=== PATIENT | female | born 1960 | race Caucasian/White ===

== ENCOUNTER → 2017-03-09 | Outpatient (CLI) | payer OTHER ==
--- NOTE | 2017-03-09 15:06 | CARD ---
APPROVED REPORT EXAM: Two-dimensional and M-mode echocardiogram with Doppler and color Doppler. Other Information Quality : GoodHR: 80bpm Rhythm : NSR INDICATION Chest Pain RISK FACTORS Obesity Hyperlipidemia Family History 2D DIMENSIONS RVDd2.8 (2.9-3.5cm)Left Atrium(2D)3.6 (1.6-4.0cm) IVSd1.0 (0.7-1.1cm)Aortic Root(2D)3.1 (2.0-3.7cm) LVDd5.3 (3.9-5.9cm)LVOT Diameter2.4 (1.8-2.4cm) PWd1.0 (0.7-1.1cm)LVDs3.4 (2.5-4.0cm) FS (%) 37.1 %SV91.5 ml LVEF(%)66.5 (>50%) Aortic Valve AoV Peak Miguel Angel.222.6cm/sAoV VTI44.5cm AO Peak GR.19.8mmHgLVOT Peak Miguel Angel.131.6cm/s LVOT VTI 25.65cmAO Mean GR.12mmHg NICOLE (VMAX)2.78gr3USJ (VTI)2.57cm2 Mitral Valve MV E Kuhwvsyz53.2cm/sMV E Peak Gr.4mmHg MV DECEL [id number] A Widkeodm27.8cm/s MV E Mean Gr.2mmHgE/A Ratio1.1 MV A [id number] Pulmonary Valve PV Peak Aozsucpi287.3cm/sPV Peak Grad.5mmHg Tricuspid Valve TR P. Pqbyfxvu724ee/sTR Peak Gr.25mmHg Pulmonary Vein S1 Rfbjjioe27.0cm/sD2 Hgolyzsy68.0cm/s LEFT VENTRICLE The left ventricle is normal size. There is normal left ventricular wall thickness. The left ventricu lar systolic function is normal and the ejection fraction is within normal range. The Ejection Fracti on is 65-70%. There is normal LV segmental wall motion. The left ventricular diastolic function and f illing is normal for age. RIGHT VENTRICLE The right ventricle is normal size. There is normal right ventricular wall thickness. The right ventr icular systolic function is normal. ATRIA The left atrium size is normal. The right atrium size is normal. The interatrial septum is intact wit h no evidence for an atrial septal defect or patent foramen ovale as noted on 2-D or Doppler imaging. AORTIC VALVE The aortic valve is mildly sclerotic. The aortic valve is trileaflet. Doppler and Color Flow revealed no significant aortic regurgitation. There is no significant aortic valvular stenosis. MITRAL VALVE The mitral valve is normal in structure and function. There is no evidence of mitral valve prolapse. There is no mitral valve stenosis. Doppler and Color Flow revealed no mitral valve regurgitation note d. TRICUSPID VALVE Doppler and Color Flow revealed trace tricuspid regurgitation. The pulmonary artery systolic pressure is estimated at 28 mmHg. There is no pulmonary hypertension. PULMONIC VALVE The pulmonic valve is not well visualized but appears to open well. Doppler and Color Flow revealed n o pulmonic valvular regurgitation. There is no pulmonic valvular stenosis by spectral Doppler. GREAT VESSELS The aortic root is normal in size. The ascending aorta is normal in size. The pulmonary artery is nor mal. The IVC is normal in size and collapses >50% with inspiration. PERICARDIAL EFFUSION There is no evidence of significant pericardial effusion. Critical Notification Critical Value: No <Conclusion> The left ventricular systolic function is normal and the ejection fraction is within normal range. Th e Ejection Fraction is 65-70%. There is normal LV segmental wall motion.
== END | disposition home or self-care (01) ==
LOC: ECHO 07:34
PROVIDERS: ATTEND Internal Medicine Cardiovascular Disease
DX: R07.9 Chest pain, unspecified (principal); E66.9 Obesity, unspecified; E78.5 Hyperlipidemia, unspecified
CPT/HCPCS: 93306

== ENCOUNTER → 2017-03-09 | Outpatient (CLI) | payer OTHER ==
--- NOTE | 2017-03-09 09:54 | RAD ---
Indication pain particularly in the heels. AP oblique and lateral views of both feet were obtained. Views of the right foot show no acute finding. Significant degenerative changes are not seen. Bony mineralization appears normal. Views of the left foot also appear unremarkable. There are no significant degenerative changes. Bony mineralization appears normal. No acute finding is seen. IMPRESSION: Normal plain films of the feet.
== END | disposition home or self-care (01) ==
LOC: RAD 07:56
PROVIDERS: ATTEND Psychiatry & Neurology Neurology with Special Qualifications in Child Neurology
DX: M79.671 Pain in right foot (principal); M79.672 Pain in left foot
CPT/HCPCS: 73630

== ENCOUNTER → 2017-03-09 | Outpatient (CLI) | payer OTHER ==
--- NOTE | 2017-03-09 09:44 | RAD ---
Indication back pain. AP oblique and lateral views of the lumbar spine were obtained as well as a coned view targeted to the lumbosacral junction. There is very minimal anterior spondylolisthesis of L4 relative to L5. There are facet degenerative changes in the lower lumbar spine most pronounced at L4-5 and L5-S1. There is very minimal disc space narrowing at L5-S1. An acute bony finding is not seen. IMPRESSION:: Minimal spondylitic changes. No acute finding seen
== END | disposition home or self-care (01) ==
LOC: RAD 07:48
PROVIDERS: ATTEND Physician Assistant
DX: M43.16 Spondylolisthesis, lumbar region (principal)
CPT/HCPCS: 72110

== ENCOUNTER → 2017-06-04 | Outpatient (CLI) | payer OTHER ==
--- NOTE | 2017-06-04 12:01 | RAD ---
DATE: 06/04/2017 EXAM: DIGITAL SCREEN BILAT W/CAD HISTORY: Routine screening COMPARISON: 07/20/2009. This study was interpreted with the benefit of Computerized Aided Detection (CAD). FINDINGS: No discrete mass or malignant-appearing microcalcifications are seen. The axillae are unremarkable. Breast Density: FATTY The breast parenchyma is primarily fatty replaced. Breast parenchyma level density A. IMPRESSION: No mammographic features suspicious for malignancy are identified. BI-RADS CATEGORY: 1 NEGATIVE RECOMMENDED FOLLOW-UP: 12M 12 MONTH FOLLOW-UP PQRS compliance statement: Patient information was entered into a reminder system with a target due date 06/04/2018 for the next mammogram. Mammography is a sensitive method for finding small breast cancers, but it does not detect them all and is not a substitute for careful clinical examination. A negative mammogram does not negate a clinically suspicious finding and should not result in delay in biopsying a clinically suspicious abnormality. "Our facility is accredited by the [employer] Mammography Program."
== END | disposition home or self-care (01) ==
LOC: MAMMO 11:02
PROVIDERS: ATTEND Physician Assistant
DX: Z12.31 Encounter for screening mammogram for malignant neoplasm of breast (principal); F17.200 Nicotine dependence, unspecified, uncomplicated
CPT/HCPCS: G0202; 77067

== ENCOUNTER → 2017-07-21 | Outpatient (CLI) | payer OTHER ==
--- NOTE | 2017-07-21 12:25 | RAD ---
2 views of the Chest 07/21/2017 2:00 AM Indication: SHORT OF AIR WITH COUGH Comparison: None Findings: No pneumothorax or evidence of pleural effusion is identified. There is a basilar predominant interstitial coarsening, similar comparison studies, which can be seen with COPD. Heart size is stable. Bony thorax is intact. Impression: Stable appearance of the chest without evidence of acute cardiac pulmonary process
== END | disposition home or self-care (01) ==
LOC: PMG 11:38
PROVIDERS: ATTEND Physician Assistant
DX: R05 Cough (principal); F17.200 Nicotine dependence, unspecified, uncomplicated
CPT/HCPCS: 71020

== ENCOUNTER → 2018-06-14 | Outpatient (CLI) | payer OTHER ==
--- NOTE | 2018-06-14 13:50 | RAD ---
DATE: 06/14/2018 EXAM: DIGITAL SCREEN BILAT W/CAD HISTORY: Routine screening COMPARISON: 08/07/2003 and 06/04/2017 screen mammogram This study was interpreted with the benefit of Computerized Aided Detection (CAD). Breast Density: FATTY The breast parenchyma is primarily fatty replaced. Breast parenchyma level density A. FINDINGS: Benign-appearing axillary lymph nodes are present. No suspicious calcification clusters, masses, or distortion. IMPRESSION: Normal BI-RADS CATEGORY: 2 BENIGN FINDING(S) RECOMMENDED FOLLOW-UP: 12M 12 MONTH FOLLOW-UP PQRS compliance statement: Patient information was entered into a reminder system with a target due date in 1 year for the next mammogram. Mammography is a sensitive method for finding small breast cancers, but it does not detect them all and is not a substitute for careful clinical examination. A negative mammogram does not negate a clinically suspicious finding and should not result in delay in biopsying a clinically suspicious abnormality. "Our facility is accredited by the [employer] Mammography Program."
== END | disposition home or self-care (01) ==
LOC: MAMMO 13:09
PROVIDERS: ATTEND Physician Assistant
DX: Z12.31 Encounter for screening mammogram for malignant neoplasm of breast (principal)
CPT/HCPCS: 77067

== ENCOUNTER 2020-07-06 18:36 | Emergency (ER) | payer OTHER ==
[~2020-07-06] VITALS: Ht 170.2 cm; Wt 100.0 kg
--- NOTE | 2020-07-06 18:42 | PHYS DOC ---
Past History Past Medical History: Arthritis Smoking: Cigarettes Alcohol Use: Occasionally Drug Use: Amphetamine General Adult EDM: Chief Complaint: HIP PAIN HPI: HPI: "I fell the other day... two day before .. and hurt this Lt hip.. and it been .. hurting ever since.. I been to [facility].. he did not do anything.. I went to Urgent Care ... and they sent me here for US of my Lt. leg.. you see I have had lots strokes.. 5 major.. to many small strokes to count.. I am partially blind.. and weak on this Lt sied.... they tell me to stop smoking.. but you gotta of something.. Also has nonproductive cough,... Patient is a 59 year old female who presents with above hx and complaints of left hip pain after fall 2 days before . Patient still localizes pain in left hip and left leg. Patient has been seen by Dr. Baer as well as urgent care just before arrival here. Patient has significant history of CVAs TIAs. 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 Patient has history of chronic pain. Patient has history of chronic back pain particularly after fall and fractures transverse processes of L 3 and L4. Patient does continue to smoke in spite of her frequent encouragement by her physicians both neurology and primary to stop smoking. Review of Systems: Review of Systems: Constitutional: Denies fever or chills Eyes: Denies change in visual acuity HENT: Denies nasal congestion or sore throat Respiratory: History of nonproductive cough and shortness of breath Cardiovascular: History of chest discomfort GI: Denies abdominal pain, nausea, vomiting, bloody stools or diarrhea : Denies dysuria Musculoskeletal: Complains of chronic back pain or joint pain Integument: Denies rash Neurologic: Denies headache, focal weakness or sensory changes Endocrine: Denies polyuria or polydipsia Lymphatic: Denies swollen glands Psychiatric: History of anxiety Family History: Family History: Noncontributory to presentation Current Medications: Current Meds: See nursing for home meds Allergies: Allergies: Allergies Coded Allergies Type Severity Reaction Last Updated Verified No Known Drug Allergies 03/10/17 No Physical Exam: PE: Constitutional: Reports moderate acute distress, non-toxic appearance. [] HENT: Normocephalic, atraumatic, bilateral external ears normal, oropharynx moist, no oral exudates, nose normal. [] Eyes: PERRLA, EOMI, conjunctiva normal, no discharge. [] Neck: Normal range of motion, no tenderness, supple, no stridor. [] Cardiovascular:Heart rate regular rhythm, no murmur, PMI slightly to the left. Lungs & Thorax: Bilateral breath sounds equal apex with scattered wheezes on auscultation [] Abdomen: Bowel sounds normal, soft, no tenderness, no masses, no pulsatile masses. Obese. Skin: Warm, dry, no erythema, no rash. Poor turgor. Back: Lumbar sacral tenderness, no CVA tenderness. Left sciatic nerve tenderness Extremities: No tenderness, no cyanosis, no clubbing, ROM intact, no edema. [Arthritic changes. Walks with a limp and complains of chronic left leg pain which seems to follow the sciatic nerve. Neurologic: Alert and oriented X 3, moves all extremities on request, does have distal sensory, does have chronic left side weakness from previous CVA. Psychologic: Affect normal, judgement normal, mood normal. [] EKG: EKG: [] Radiology/Procedures: Radiology/Procedures: [] IMAGING REPORT Signed PATIENT: MYRANDA RO EACCOUNT: [id number] : 1960 LOCATION: ER AGE: 59 SEX: F EXAM STATUS: REG ER ORD. PHYSICIAN: JORGE LUIS JUSTICE MD REASON: dyspnea, cp Omni 350 100cc PROCEDURE: CT ANGIOGRAPHY CHEST Exam: CT of chest with contrast INDICATION: Dyspnea, chest pain TECHNIQUE: Sequential axial images through the chest obtained following the administration 100 mL of Omni 350 IV contrast. Sagittal and coronal reformatted images were reconstructed from the axial data and reviewed. 3-D reformatted images were reconstructed from the axial data and reviewed. Comparisons: Chest x-ray same day FINDINGS: Visualized portions of the thyroid are unremarkable. No enlarged mediastinal lymph nodes are identified. Heart size is normal. No pericardial effusion. Thoracic aorta has a normal course and caliber. Pulmonary artery is not enlarged. No pulmonary embolus identified within the main, lobar or Airways are patent. No consolidation or pneumothorax. No suspicious lung nodules. No pleural effusion or thickening. Visualized upper abdomen is unremarkable. No suspicious osseous lesions or acute fractures. IMPRESSION: No pulmonary embolus identified within the main, lobar or segmental pulmonary arteries. Exposure: One or more of the following in the visualized dose reduction techniques were utilized for this examination: 1. Automated exposure control 2. Adjustment of the MA and/or KV according to patient size 3. Use of iterative of reconstructive technique Electronically signed by: Omayra Martinez MD (07/06/2020 10:36 PM) [facility] DICTATED AND SIGNED BY: OMAYRA MARTINEZ MD DATE: 07/06/202235 CC: JORGE LUIS JUSTICE MD; DAMASO BAER ~[facility] [place] [address] IMAGING REPORT Signed PATIENT: MYRANDA RO EACCOUNT: [id number] : 1960 LOCATION: ER AGE: 59 SEX: F EXAM STATUS: REG ER ORD. PHYSICIAN: JORGE LUIS JUSTICE MD REASON: Fall, lower back and Lt hip pain PROCEDURE: CT LUMBAR SPINE WO CONTRAST CT lumbar spine without contrast History: Back pain Axial helical images of the lumbar spine were obtained without contrast. Axial, coronal and sagittal reconstruction was performed. Findings: There is grade 1 anterolisthesis of L4 on L5. There is no loss of vertebral body stature. Evaluation of the central canal is limited without contrast. Diffuse or frontal disc bulge and hypertrophy of the facets and ligamentum flavum results in marked central stenosis at L4-L5. There is moderate narrowing of the neuroforamen bilaterally at L4-5 right worse than left and loss of fat around the exiting nerve roots. There is old ununited fractures of the right transverse process of L3 on L4. There is multiple small nonobstructive stones in the right renal pelvis. Impression: 1. Grade 1 anterior listhesis of L4 on L5 with central and neural femoral stenosis. There is compression of the intraforaminal course the exiting nerve roots bilaterally at L4-5. 2. No acute findings. End impression PQRS Compliance Statement: One or more of the following individualized dose reduction techniques were utilized for this examination: 1. Automated exposure control 2. Adjustment of the mA and/or kV according to patient size 3. Use of iterative reconstruction technique Electronically signed by: Goldy Grey III, MD (07/06/2020 7:41 PM) [facility] DICTATED AND SIGNED BY: GOLDY GREY III, MD DATE: 07/06/201940 CC: JORGE LUIS JUSTICE MD; DAMASO BAER ~MTH0 0 IMAGING REPORT Signed PATIENT: MYRANDA RO EACCOUNT: [id number] : 1960 LOCATION: ER AGE: 59 SEX: F EXAM STATUS: REG ER ORD. PHYSICIAN: JORGE LUIS JUSTICE MD REASON: Fall, left sided chest pain PROCEDURE: PORTABLE CHEST 1V PORTABLE CHEST 1V Clinical History: Reason: Fall, left sided chest pain / Spl. Instructions: / History: Technique: AP view of the chest was obtained at 07/06/2020 6:55 PM. Comparison: July 21, 2017. Findings: The cardiomediastinal silhouette is normal. The pulmonary vasculature is normal. The lungs and pleural margins are clear. Impression: No evidence of an acute cardiopulmonary process. Electronically signed by: Goldy Grey III, MD (07/06/2020 7:37 PM) [facility] DICTATED AND SIGNED BY: GOLDY GREY III, MD DATE: 07/06/201936 CC: JORGE LUIS JUSTICE MD; DAMASO BAER ~[facility] [address] [address] IMAGING REPORT Signed PATIENT: MYRANDA RO EACCOUNT: [id number] : 1960 LOCATION: ER AGE: 59 SEX: F EXAM STATUS: REG ER ORD. PHYSICIAN: JORGE LUIS JUSTICE MD REASON: Fall, lower back and Lt hip pain PROCEDURE: CT LUMBAR SPINE WO CONTRAST CT lumbar spine without contrast History: Back pain Axial helical images of the lumbar spine were obtained without contrast. Axial, coronal and sagittal reconstruction was performed. Findings: There is grade 1 anterolisthesis of L4 on L5. There is no loss of vertebral body stature. Evaluation of the central canal is limited without contrast. Diffuse or frontal disc bulge and hypertrophy of the facets and ligamentum flavum results in marked central stenosis at L4-L5. There is moderate narrowing of the neuroforamen bilaterally at L4-5 right worse than left and loss of fat around the exiting nerve roots. There is old ununited fractures of the right transverse process of L3 on L4. There is multiple small nonobstructive stones in the right renal pelvis. Impression: 1. Grade 1 anterior listhesis of L4 on L5 with central and neural femoral stenosis. There is compression of the intraforaminal course the exiting nerve roots bilaterally at L4-5. 2. No acute findings. End impression PQRS Compliance Statement: One or more of the following individualized dose reduction techniques were utilized for this examination: 1. Automated exposure control 2. Adjustment of the mA and/or kV according to patient size 3. Use of iterative reconstruction technique Electronically signed by: Goldy Grey III, MD (07/06/2020 7:41 PM) [facility] DICTATED AND SIGNED BY: GOLDY GREY III, MD DATE: 07/06/201940 CC: JORGE LUIS JUSTICE MD; DAMASO BAER ~MTH0 0 Heart Score: HEART Score for Chest Pain: HEART Score for Chest Pain Response (Comments) Value History Slighlty/Non-Suspicious 0 ECG Normal 0 Age >45 - < 65 1 Risk Factors 1 or 2 Risk Factors 1 Troponin < Normal Limit 0 Total 2 Risk Factors: Risk Factors: DM, Current or recent (<one month) smoker, HTN, HLP, family history of CAD, obesity. Risk Scores: Score 0 - 3: 2.5% MACE over next 6 weeks - Discharge Home Score 4 - 6: 20.3% MACE over next 6 weeks - Admit for Clinical Observation Score 7 - 10: 72.7% MACE over next 6 weeks - Early Invasive Strategies Course & Med Decision Making: Course & Med Decision Making Pertinent Labs and Imaging studies reviewed. (See chart for details) Pt. to follow up with primary. Take meds as previously directed. Consider follow up with Neurosurgery for chronic back pain and sciatica. Patient take Eliquis 2.5 mg twice daily. Consider outpatient ultrasound. Practice self isolation. Wear a mask covering nose and mouth. Strongly encourage patient stop smoking. Impression: 1. Sciatica Lt. 2. Spinal stenosis-most prominent at central canal L4 and L5 3. Old transverse fractures L3 and 4 4. Mild elevation D-dimer 0.96 5. Appears to exhibit narcotic drug-seeking behaviors 6. Substance abuse ? Drug screen positive for amphetamine 7. Viral syndrome [] Dragon Disclaimer: Dragon Disclaimer: This electronic medical record was generated, in whole or in part, using a voice recognition dictation system. Departure Departure: Referrals: DAMASO BAER (PCP) Scripts Hydrocodone/Ibuprofen (HYDROCODONE-IBUPROFEN 7.5-200 ) 1 Each Tablet 1 TAB PO PRN Q6HRS PRN for PAIN, #30 TAB 0 Refills Prov: JORGE LUIS JUSTICE MD 07/06/20 Apixaban (ELIQUIS) 2.5 Mg Tablet 2.5 MG PO BID for dvtprophylaxis for 30 Days, #60 TAB Prov: JORGE LUIS JUSTICE MD 07/06/20 Dragon Disclaimer This chart was dictated in whole or in part using Voice Recognition software in a busy, high-work load, and often noisy Emergency Department environment. It may contain unintended and wholly unrecognized errors or omissions. JORGE LUIS JUSTICE MD Jul 06, 2020 18:42
[2020-07-06] MEDS ORDERED: KETOROLAC 60 MG/2 ML VIAL. IM ONE (19:30)
[2020-07-06] MEDS ORDERED: IV RINGERS SOLUTION,LACTATED 1,000 ML IV SCH (19:30)
--- NOTE | 2020-07-06 19:39 | RAD ---
PORTABLE CHEST 1V Clinical History: Reason: Fall, left sided chest pain / Spl. Instructions: / History: Technique: AP view of the chest was obtained at 07/06/2020 6:55 PM. Comparison: July 21, 2017. Findings: The cardiomediastinal silhouette is normal. The pulmonary vasculature is normal. The lungs and pleural margins are clear. Impression: No evidence of an acute cardiopulmonary process. Electronically signed by: Javier Denson III, MD (07/06/2020 7:37 PM) [facility]
--- NOTE | 2020-07-06 19:44 | RAD ---
CT lumbar spine without contrast History: Back pain Axial helical images of the lumbar spine were obtained without contrast. Axial, coronal and sagittal reconstruction was performed. Findings: There is grade 1 anterolisthesis of L4 on L5. There is no loss of vertebral body stature. Evaluation of the central canal is limited without contrast. Diffuse or frontal disc bulge and hypertrophy of the facets and ligamentum flavum results in marked central stenosis at L4-L5. There is moderate narrowing of the neuroforamen bilaterally at L4-5 right worse than left and loss of fat around the exiting nerve roots. There is old ununited fractures of the right transverse process of L3 on L4. There is multiple small nonobstructive stones in the right renal pelvis. Impression: 1. Grade 1 anterior listhesis of L4 on L5 with central and neural femoral stenosis. There is compression of the intraforaminal course the exiting nerve roots bilaterally at L4-5. 2. No acute findings. End impression PQRS Compliance Statement: One or more of the following individualized dose reduction techniques were utilized for this examination: 1. Automated exposure control 2. Adjustment of the mA and/or kV according to patient size 3. Use of iterative reconstruction technique Electronically signed by: Javier Denson III, MD (07/06/2020 7:41 PM) [facility]
[2020-07-06 20:22] LABS: CALCIUM 9.4 mg/dL (8.5-10.1); CREATININE 0.9 mg/dL (0.6-1.0); GFR 64.1; POTASSIUM 3.6 mmol/L (3.5-5.1)
[2020-07-06 20:35] LABS: ALBUMIN 3.5 g/dL (3.4-5.0); DIRECT BILIRUBIN 0.1 mg/dL (0.0-0.2); TOTAL BILIRUBIN 0.3 mg/dL (0.2-1.0); TOTAL PROTEIN 7.8 g/dL (6.4-8.2)
[2020-07-06 20:46] LABS: BASO # 0.1 x10^3/uL (0.0-0.2); BASO % 1 % (0-3); EOS # 0.2 x10^3/uL (0.0-0.7); EOS % 3 % (0-3); LYMPH # 2.7 x10^3/uL (1.0-4.8); LYMPH % 35 % (24-48); MEAN CORPUSCULAR HEMOGLOBIN 28 pg (25-35); MEAN CORPUSCULAR HGB CONC 32 g/dL (31-37); MEAN CORPUSCULAR VOLUME 86 fL (79-100); MONO # 0.5 x10^3/uL (0.0-1.1); MONO % 7 % (0-9); NEUT # 4.3 x10^3uL (1.8-7.7); NEUT % 55 % (31-73); PLATELET COUNT 218 x10^3/uL (140-400); RED BLOOD COUNT 4.65 x10^6/uL (3.50-5.40); RED CELL DISTRIBUTION WIDTH 14.5 % (11.5-14.5); WHITE BLOOD COUNT 7.9 x10^3/uL (4.0-11.0)
[2020-07-06] MEDS ORDERED: ANTI-COAG MONITOR BY PHARMACY. MC PRN (22:15)
[2020-07-06] MEDS ORDERED: CONTRAST GIVEN. MC PRN (22:15)
[2020-07-06] MEDS ORDERED: IOHEXOL 350 MG/ML 100 ML VIAL. IV ONE (22:30)
[2020-07-06] MEDS ORDERED: KETOROLAC 30 MG/ML VIAL. IVP ONE (22:30)
--- NOTE | 2020-07-06 22:39 | RAD ---
Exam: CT of chest with contrast INDICATION: Dyspnea, chest pain TECHNIQUE: Sequential axial images through the chest obtained following the administration 100 mL of Omni 350 IV contrast. Sagittal and coronal reformatted images were reconstructed from the axial data and reviewed. 3-D reformatted images were reconstructed from the axial data and reviewed. Comparisons: Chest x-ray same day FINDINGS: Visualized portions of the thyroid are unremarkable. No enlarged mediastinal lymph nodes are identified. Heart size is normal. No pericardial effusion. Thoracic aorta has a normal course and caliber. Pulmonary artery is not enlarged. No pulmonary embolus identified within the main, lobar or Airways are patent. No consolidation or pneumothorax. No suspicious lung nodules. No pleural effusion or thickening. Visualized upper abdomen is unremarkable. No suspicious osseous lesions or acute fractures. IMPRESSION: No pulmonary embolus identified within the main, lobar or segmental pulmonary arteries. Exposure: One or more of the following in the visualized dose reduction techniques were utilized for this examination: 1. Automated exposure control 2. Adjustment of the MA and/or KV according to patient size 3. Use of iterative of reconstructive technique Electronically signed by: Omayra Camp MD (07/06/2020 10:36 PM) [facility]
[2020-07-06 22:43] LABS: BACTERIA,URINE 0 /HPF (0-FEW); BILIRUBIN,URINE NEG (NEG); CLARITY,URINE CLEAR; COLOR,URINE YELLOW; GLUCOSE,URINE NEG (NEG); NITRITE,URINE NEG (NEG); RBC,URINE 0 /HPF (0-2); SQUAMOUS EPITHELIAL CELL,UR MOD /LPF
[2020-07-06 22:48] LABS: BARBITURATES NEG (NEG); BENZODIAZEPINES NEG (NEG); CANNABINOIDS NEG (NEG); COCAINE NEG (NEG); METHADONE NEG (NEG); OPIATES NEG (NEG); PHENCYCLIDINE NEG (NEG)
[2020-07-06 22:49] LABS: AMPHETAMINE/METHAMPHETAMINE POS (NEG)
[2020-07-06 22:57] VITALS: BP 119/75
[2020-07-06] MEDS ORDERED: APIXABAN 2.5 MG TABLET PO SCH (23:00)
[2020-07-06] MEDS ORDERED: APIX2.5T PO (23:55)
[2020-07-06] MEDS ORDERED: HYDR-1179 PO (23:56)
--- NOTE | 2020-07-08 09:05 | EKG ---
[address] [address] Test Date: 2020-07-06 Test Time: 20:47:01 Pat Name: MYRANDA RO Department: Room: Gender: F [place]: : 1960 Requested By: JORGE LUIS JUSTICE Order Number: [id number] Reading MD: Measurements Intervals [place] Rate: 71 P: 34 LA: 168 QRS: 4 QRSD: 84 T: 15 QT: 386 QTc: 424 Interpretive Statements SINUS RHYTHM NORMAL ECG RI6.02 No previous ECG available for comparison
== END 2020-07-07 00:31 | disposition home or self-care (01) ==
LOC: ER 18:36
DX: M54.41 Lumbago with sciatica, right side (principal); M48.061 Spinal stenosis, lumbar region without neurogenic claudication; R79.1 Abnormal coagulation profile; B34.9 Viral infection, unspecified; G89.29 Other chronic pain; M19.90 Unspecified osteoarthritis, unspecified site; F17.210 Nicotine dependence, cigarettes, uncomplicated; F15.10 Other stimulant abuse, uncomplicated; Z76.5 Malingerer [conscious simulation]
CPT/HCPCS: 71045; 71275; 72131; 80048; 80076; 80307; 81001; 82550; 83690; 83735; 83880; 84443; 84484; 85025; 85379; 85610; 85730; 93005; 96361; 96372; 96374; 99285; J1885; J7120; Q9967

== ENCOUNTER → 2020-07-12 | Outpatient (CLI) | payer OTHER ==
[2020-07-06 22:57] VITALS: BP 119/75
[~2020-07-12] MED LIST: APIX2.5T PO; HYDR-1179 PO
--- NOTE | 2020-07-12 13:34 | RAD ---
Examination: US DPLX VENOUS EXTREMITY LOWER LT History: Reason: LEFT LEG PAIN / Spl. Instructions: / History: Comparison/Correlation: None Findings: Left lower extremity venous duplex ultrasound exam was performed. Left common femoral vein, superficial femoral vein, deep femoral vein, popliteal vein, great saphenous vein junction, and visu alized calf veins are unremarkable with no evidence of DVT. Impression: No left lower extremity DVT. Electronically signed by: Ki Clay MD (07/12/2020 10:52 AM) [id number]
== END ==
LOC: US 10:15
PROVIDERS: ATTEND Physician Assistant Medical
DX: M79.605 Pain in left leg (principal)
CPT/HCPCS: 93971

== ENCOUNTER 2020-07-15 15:37 | Emergency (ER) | payer OTHER ==
[~2020-07-15] VITALS: Ht 170.2 cm; Wt 94.0 kg
--- NOTE | 2020-07-15 16:06 | PHYS DOC ---
Past History Past Medical History: Arthritis Past Surgical History: Other Additional Past Surgical Histo: Craniotomy, PFO repair, Thrombectomy Smoking: Cigarettes Alcohol Use: Occasionally Drug Use: Amphetamine Adult General Chief Complaint Chief Complaint: ANKLE PROBLEM HPI HPI Patient is a 59-year-old female presenting for left lower leg pain. This is a chronic issue. Patient reports having a long time lower back and left lower extremity pain, states it was exacerbated when suffering a mechanical fall June 26, 2020. Patient unable to describe sudden fall, unknown if she had any inversion type role of left ankle. She did not seek treatment for this. States she has been taking ibuprofen and Tylenol intermittently for pain with minimal relief. She was previously prescribed 8 days worth of [place] 7.5's 07/06/2020 that was filled 07/08/2020, she ran out of these yesterday. She is also on Clonazepam 1mg daily. No new injury or exacerbating event/trauma since fall 06/26/2020. States she has been seen by her primary care physician in outp atient setting and pending MRI of her back at this time but " it is taking too long". She is here today for pain control Review of Systems Review of Systems Fourteen body systems of review of systems have been reviewed. See HPI for pertinent positives and negative responses, other prince all other systems are negative, non-pertinent or non-contributory Allergies Allergies Allergies Coded Allergies Type Severity Reaction Last Updated Verified No Known Drug Allergies 03/10/17 No Physical Exam Physical Exam Constitutional: Well developed, well nourished, no acute distress, obese, walking with cane non-toxic appearance. HENT: Normocephalic, atraumatic, bilateral external ears normal, oropharynx moist, no oral exudates, nose normal. Eyes: PERRLA, EOMI, conjunctiva normal, no discharge. Neck: Normal range of motion, no tenderness, supple, no stridor. Cardiovascular: Heart rate regular per monitor Lungs & Thorax: No respiratory distress or accessory muscle use, bilateral chest rise Abdomen: Abdomen soft, non-tender, bowel sounds present in all quadrants, no guarding or rebound, nonacute abdomen. Skin: Warm, dry, no erythema, no rash. Back: No tenderness, no CVA tenderness. Extremities: No tenderness, no cyanosis, no clubbing, ROM intact, no edema. Negative [place] knee, ankle and foot rules of left lower extremity. Negative Homans' sign bilaterally. Visual appearance and circumference of bilateral lower extremities equal. Bilateral tibialis and dorsalis pedis pulses intact and symmetric 2+. Patient ambulatory with antalgic gait, this is at baseline per patient who typically ambulates with cane as assistive device Neurologic: Alert and oriented X 3, normal motor & sensory function, no focal deficits noted. Psychologic: Anxious affect, judgement normal, anxious mood Current Patient Data Vital Signs Vital Signs Date Time Temp Pulse Resp B/P (MAP) Pulse Ox O2 Delivery O2 Flow Rate FiO2 07/15/20 16:25 68 140/76 (97) 97 Room Air 07/15/20 16:07 98.2 18 EKG EKG [] Radiology/Procedures Radiology/Procedures [] Heart Score HEART Score for Chest Pain: HEART Score for Chest Pain Response (Comments) Value History Slighlty/Non-Suspicious 0 Age >45 - < 65 1 Risk Factors >3 Risk Factors or Hx CAD 2 Total 3 Risk Factors: Risk Factors: DM, Current or recent (<one month) smoker, HTN, HLP, family history of CAD, obesity. Risk Scores: Risk Factors: DM, Current or recent (<one month) smoker, HTN, HLP, family history of CAD, obesity. Course & Med Decision Making Course & Med Decision Making ABCs, history and physical examination non-concerning. There are no red flag signs of back pain present. I have low suspicion for malignancy/mets, acute Spinal Fracture, Vertebral Osteomyelitis, Epidural Abscess, Infected or Obstructing Kidney Stone. Their presentation appears most likely to be secondary to non-emergent musculoskeletal etiology vs non-emergent disc herniation. ED Workup: Defer imaging and labwork for outpatient follow up at this time given no acute indication otherwise. Patient has outpatient MRI pending. Discussed this is an outpatient not ER matter given presentation Disposition: Discharge. Ongoing supportive care practices advised. Advised her to stop smoking and lose weight. Strict return precautions discussed with patient with full understanding. Advised patient to follow up promptly with primary care provider Vijay Disclaimer Lacyon Disclaimer This electronic medical record was generated, in whole or in part, using a voice recognition dictation system. Departure Departure: Impression: Primary Impression: Chronic pain in left foot Disposition: 01 DC HOME SELF CARE/HOMELESS Condition: STABLE Referrals: AMBROCIO MALHOTRA (PCP) Patient Instructions: Foot Sprain Additional Instructions: You have been evaluated in the Emergency Department today for your left lower extremity pain. As discussed, there were no indications for any emergent imaging based on your comprehensive history and physical examination in our ER today You can alternate Tylenol and/or Motrin every 4-6 hours to help control your pain. Please also rest, ice, and elevate your ankle to control your pain. Please follow up with your primary care physician as needed. You are currently pending MRI which I feel is reasonable. You would benefit from tobacco cessation as well Return to the Emergency Department if you experience worsening pain, numbness/tingling, change of color in your toes, or any other concerning symptoms. Scripts Diclofenac Sodium (VOLTAREN) 100 Gm Gel..gram. 1 GM TP QID for pain for 30 Days, #1 EACH 0 Refills apply to affected area(s) Prov: DEMETRICE ARMSTRONG DO 07/15/20 DEMETRICE ARMSTRONG DO Jul 15, 2020 16:06
[2020-07-15 16:25] VITALS: BP 140/76
[2020-07-15] MEDS ORDERED: DICL100G18 TP (16:36)
== END 2020-07-15 16:30 | disposition home or self-care (01) ==
LOC: ER 15:37
DX: G89.29 Other chronic pain (principal); M79.662 Pain in left lower leg; M54.5 Low back pain; M19.90 Unspecified osteoarthritis, unspecified site; F17.210 Nicotine dependence, cigarettes, uncomplicated; F15.10 Other stimulant abuse, uncomplicated
CPT/HCPCS: 99284

== ENCOUNTER 2020-07-22 15:13 | Emergency (ER) | payer OTHER ==
[~2020-07-22] VITALS: Ht 170.2 cm; Wt 94.0 kg
[~2020-07-22 15:13] MED LIST changes: +DICL100G18 TP
--- NOTE | 2020-07-22 15:50 | PHYS DOC ---
Past History Past Medical History: Arthritis, Stroke Past Surgical History: Other Additional Past Surgical Histo: Craniotomy, PFO repair, Thrombectomy Smoking: Cigarettes Alcohol Use: Occasionally Drug Use: Amphetamine General Adult EDM: Chief Complaint: HIP PAIN HPI: HPI: Patient is a 59-year-old female who had a mechanical fall the day before Thanksgiving presents with persistent severe in intensity stabbing, throbbing pain is located on her left sacrum, left hip, left knee, left ankle. Patient's been seen here a few times but does not appear like she has had plain films done. Patient states she is having difficulty sleeping and increased pain with range of motion. Patient denies any recent illnesses. Pain radiates from the hip down the leg. Patient seen her doctor who is ordered MRI of her spine as well. Patient does not have bowel or bladder incontinence. Review of Systems: Review of Systems: Constitutional: Denies fever or chills Eyes: Denies change in visual acuity HENT: Denies nasal congestion or sore throat Respiratory: Denies cough or shortness of breath Cardiovascular: Denies chest pain or edema GI: Denies abdominal pain, nausea, vomiting, bloody stools or diarrhea : Denies dysuria Musculoskeletal: Patient complains of back pain with left leg pain that is located in the left hip knee foot and ankle Integument: Denies rash Neurologic: Denies headache, focal weakness or sensory changes Endocrine: Denies polyuria or polydipsia Lymphatic: Denies swollen glands Psychiatric: Denies depression or anxiety Current Medications: Current Meds: Current Medications Medications (Trade) Dose Ordered Sig/Neema Start Time Stop Time Status Last Admin Dose Admin Acetaminophen/ Hydrocodone Bitart (Lortab 7.5/325) 1 tab 1X ONCE 07/22/20 16:00 07/22/20 16:01 UNV Allergies: Allergies: Allergies Coded Allergies Type Severity Reaction Last Updated Verified No Known Drug Allergies 07/22/20 No Physical Exam: PE: Constitutional: Well developed, well nourished, no acute distress, non-toxic appearance. [] HENT: Normocephalic, atraumatic, bilateral external ears normal, no trismus nose normal. [] Eyes: PERRLA, EOMI, conjunctiva normal, no discharge. [] Neck: Normal range of motion, no tenderness, supple, no stridor. [] Cardiovascular:Heart rate regular rhythm, peripheral pulse intact cap refill is brisk Lungs & Thorax: Bilateral breath sounds clear, no respiratory distress Abdomen: , soft, no tenderness, no masses, no pulsatile masses. [] Skin: Warm, dry, no erythema, no rash. [] Back: Bruising to the left lumbar area Extremities: Tenderness to left sacrum and left hip, tenderness to left knee, no gross ligamentous instability, mild tenderness and mild swelling to the left ankle, tenderness left foot, neurovascular intact distally. Neurologic: Alert and oriented X 3, normal motor function, normal sensory function, no focal deficits noted. [] Dorsiflexion to the great toes intact bilateral lower extremities. No saddle anesthesia Psychologic: Affect normal, judgement normal, mood normal. [] Current Patient Data: Vital Signs: Vital Signs Date Time Temp Pulse Resp B/P (MAP) Pulse Ox O2 Delivery O2 Flow Rate FiO2 07/22/20 15:36 98.1 80 18 142/86 (104) 93 Room Air EKG: EKG: [] Radiology/Procedures: Radiology/Procedures: [][address] [address] IMAGING REPORT Signed PATIENT: MYRANDA RO EACCOUNT: [id number] : 1960 LOCATION: ER AGE: 59 SEX: F EXAM STATUS: REG ER ORD. PHYSICIAN: MAU PEARSON MD REASON: fall, pain PROCEDURE: HIP LEFT 2V WITH PELVIS Exam: Pelvis with left hip 2 views INDICATION: Fall, pain TECHNIQUE: Frontal view of pelvis with frontal and frog-leg lateral views of the left hip Comparisons: None FINDINGS: Bone mineralization is normal. No acute or healed fractures. Soft tissues are unremarkable. Joint spaces are well-maintained. IMPRESSION: No acute osseous abnormality. Electronically signed by: Omayra Martinez MD (07/22/2020 4:46 PM) [facility] DICTATED AND SIGNED BY: OMAYRA MARTINEZ MD DATE: 07/22/20 1642 CC: MAU PEARSON MD; AMBROCIO MALHOTRA ~MTH0 [address] [address] IMAGING REPORT Signed PATIENT: MYRANDA RO EACCOUNT: [id number] : 1960 LOCATION: ER AGE: 59 SEX: F EXAM STATUS: REG ER ORD. PHYSICIAN: MAU PEARSON MD REASON: fall, pain PROCEDURE: ANKLE LEFT 3V Study: 1. XR KNEE _3 VIEWS_LT 2. XR FOOT_LEFT 3 VIEWS 2. XR EXAM OF ANKLE_LEFT 3V Indication: Fall. Pain. Comparison: None. Findings: Left knee: No acute fracture or traumatic malalignment. A tiny focus of mineralization on the AP view projects adjacent to the medial tibial plateau but this is not typical of a fracture. No advanced arthrosis. No radiographic evidence for large knee joint effusion. The prepatellar soft tissues are mildly prominent. Left ankle: No acute fracture or traumatic malalignment at the ankle. Intact talar dome. Left foot: No acute fracture seen throughout the foot or traumatic malalignment. Small os tibiale externum and an os peroneum. Impression: Left knee/ankle/foot: 1. No acute fracture or traumatic malalignment. 2. Mildly prominent prepatellar soft tissues which could be within normal limits for this patient or indicative of mild contusion. Electronically signed by: ABRAHAM CRUMP MD (07/22/2020 4:50 PM) [facility] DICTATED AND SIGNED BY: ABRAHAM CRUMP MD DATE: 07/22/20 1646 CC: MAU PEARSON MD; AMBROCIO MALHOTRA MI ~MTH0 0 Heart Score: Risk Factors: Risk Factors: DM, Current or recent (<one month) smoker, HTN, HLP, family history of CAD, obesity. Risk Scores: Score 0 - 3: 2.5% MACE over next 6 weeks - Discharge Home Score 4 - 6: 20.3% MACE over next 6 weeks - Admit for Clinical Observation Score 7 - 10: 72.7% MACE over next 6 weeks - Early Invasive Strategies Course & Med Decision Making: Course & Med Decision Making Pertinent Labs and Imaging studies reviewed. (See chart for details) [] 59-year-old female presents with 1 month of left leg pain and hip pain following a fall. X-rays were done which reveals no fracture. Patient has significant pain even after hydrocodone in the ER. Patient will be given Toradol and a prescription for hydrocodone at home. Vijay Disclaimer: Vijay Disclaimer: This electronic medical record was generated, in whole or in part, using a voice recognition dictation system. Departure Departure: Impression: Primary Impression: Left leg pain Disposition: 01 DC HOME SELF CARE/HOMELESS Condition: STABLE Referrals: AMBROCIO MALHOTRA (PCP) 2-3 days Patient Instructions: Contusion Additional Instructions: EMERGENCY DEPARTMENT GENERAL DISCHARGE INSTRUCTIONS THANK YOU for coming to [facility] Emergency Department (ED) today and trusting us with your care. We trust that you had a positive experience in our Emergency Department. If you wish to speak to the department Management you can contact the emergency department at YOUR FOLLOW UP INSTRUCTIONS ARE FOLLOWS: Do you have a private doctor? If you do not have a private doctor, please ask for a resource list of physicians or clinics that may be able to assist you with follow up care. The Emergency Physician has interpreted your x-rays. The X-ray specialist will also review them. If there is a change in the findings you will be notified in 48 hours when at all possible. A lab test or lab culture may have been done, your results will be reviewed and you will be notified if you need a change in treatment. ADDITIONAL INSTRUCTIONS AND INFORMATION Your care today has been supervised by a physician who is specially trained in emergency care. Many problems require more than one evaluation for a complete diagnosis and treatment. We recommend that you schedule your follow up appointment as recommended to ensure complete treatment of your illness or injury. If you are unable to obtain follow up care and continue to have a problem, or if your condition worsens we recommend that you return to the ED. We are not able to safely determine your condition over the phone nor are we able to give sound medical advice over the phone. For these safety reasons, if you call for medical advice we will ask you to come to the ED for further evaluation If you have any questions regarding these discharge instructions please call the ED at SAFETY INFORMATION In the interest of safety, wellness, and injury prevention; we encourage you to wear your seatbelt, if you smoke; quit smoking, and we encourage your family to use p rotective helmet for bicycling and other sporting events that present an increased risk for head injury. IF YOUR SYMPTOMS WORSEN OR NEW SYMPTOMS DEVELOP, OR YOU HAVE CONCERNS ABOUT YOUR CONDITION; OR IF YOUR CONDITION WORSENS WHILE YOU ARE WAITING FOR YOUR FOLLOW UP APPOINTMENT; EITHER CONTACT YOUR PRIMARY CARE DOCTOR, THE PHYSICIAN WHOSE NAME AND NUMBER YOU WERE GIVEN, OR RETURN TO THE ED IMMEDIATELY. Scripts Hydrocodone/Ibuprofen (HYDROCODONE-IBUPROFEN 7.5-200 ) 1 Each Tablet 1 TAB PO PRN Q6HRS PRN for PAIN, #15 TAB 0 Refills Prov: MAU PEARSON MD 07/22/20 MAU PEARSON MD Jul 22, 2020 15:50
[2020-07-22] MEDS ORDERED: HYDROcodone/APAP 7.5/325MG 1 TAB TABLET PO ONE (16:00)
--- NOTE | 2020-07-22 16:48 | RAD ---
Exam: Pelvis with left hip 2 views INDICATION: Fall, pain TECHNIQUE: Frontal view of pelvis with frontal and frog-leg lateral views of the left hip Comparisons: None FINDINGS: Bone mineralization is normal. No acute or healed fractures. Soft tissues are unremarkable. Joint spa maeve are well-maintained. IMPRESSION: No acute osseous abnormality. Electronically signed by: Omayra Camp MD (07/22/2020 4:46 PM) JACLYN
--- NOTE | 2020-07-22 16:53 | RAD ---
Study: 1. XR KNEE _3 VIEWS_LT 2. XR FOOT_LEFT 3 VIEWS 2. XR EXAM OF ANKLE_LEFT 3V Indication: Fall. Pain. Comparison: None. Findings: Left knee: No acute fracture or traumatic malalignment. A tiny focus of mineralization on the AP view projects a djacent to the medial tibial plateau but this is not typical of a fracture. No advanced arthrosis. No radiographic evidence for large knee joint effusion. The prepatellar soft tissues are mildly promine nt. Left ankle: No acute fracture or traumatic malalignment at the ankle. Intact talar dome. Left foot: No acute fracture seen throughout the foot or traumatic malalignment. Small os tibiale externum and a n os peroneum. Impression: Left knee/ankle/foot: 1. No acute fracture or traumatic malalignment. 2. Mildly prominent prepatellar soft tissues which could be within normal limits for this patient or indicative of mild contusion. Electronically signed by: ABRAHAM CRUMP MD (07/22/2020 4:50 PM) [facility]
[2020-07-22] MEDS ORDERED: HYDR-1179 PO (17:27)
[2020-07-22] MEDS ORDERED: KETOROLAC 60 MG/2 ML VIAL. IM ONE (17:30)
[2020-07-22 17:31] VITALS: BP 145/79
== END 2020-07-22 17:37 | disposition home or self-care (01) ==
LOC: ER 15:13
DX: S30.0XXA Contusion of lower back and pelvis, initial encounter (principal); M25.552 Pain in left hip; M25.572 Pain in left ankle and joints of left foot; M25.562 Pain in left knee; M79.672 Pain in left foot; M19.90 Unspecified osteoarthritis, unspecified site; I25.2 Old myocardial infarction; F17.210 Nicotine dependence, cigarettes, uncomplicated; F19.90 Other psychoactive substance use, unspecified, uncomplicated; Z90.89 Acquired absence of other organs; Z98.890 Other specified postprocedural states; W18.39XA Other fall on same level, initial encounter; Y93.89 Activity, other specified; Y92.89 Other specified places as the place of occurrence of the external cause; Y99.8 Other external cause status
CPT/HCPCS: 73502; 73562; 73610; 73630; 96372; 99284; J1885

== ENCOUNTER → 2020-10-15 | Outpatient (CLI) | payer OTHER ==
--- NOTE | 2020-10-15 16:41 | CARD ---
MR#: [id number] Date of Study: 10/15/2020 Ordering Physician: JEMIMA ZIMMERMAN, Referring Physician: JEMIMA ZIMMERMAN, Tech: Angela Little KEITH APPROVED REPORT EXAM: Two-dimensional and M-mode echocardiogram with Doppler and color Doppler. Other Information Quality : Fair INDICATION CVA/TIA ASD Closure Device-2003 2D DIMENSIONS RVDd2.4 (2.9-3.5cm)Left Atrium(2D)3.2 (1.6-4.0cm) IVSd0.9 (0.7-1.1cm)Aortic Root(2D)2.7 (2.0-3.7cm) LVDd4.9 (3.9-5.9cm)LVOT Diameter2.2 (1.8-2.4cm) PWd0.8 (0.7-1.1cm)LVDs3.7 (2.5-4.0cm) FS (%) 26.0 %SV58.7 ml LVEF(%)55.0 (>50%) Aortic Valve AoV Peak Miguel Angel.151.7cm/sAoV VTI25.7cm AO Peak GR.9.2mmHgLVOT Peak Miguel Angel.143.8cm/s LVOT VTI 25.31cmAO Mean GR.5mmHg NICOLE (VMAX)3.75df0UVC (VTI)3.74cm2 Mitral Valve MV E Jfoqnlve76.2cm/sMV DECEL IJDV086ru MV A Alrbokbl14.7cm/sE/A Ratio0.8 Pulmonary Vein S1 Bnclmfbd43.3cm/sD2 Zlbircfo98.5cm/s LEFT VENTRICLE The left ventricle is normal size. There is normal left ventricular wall thickness. The left ventricu lar systolic function is normal and the ejection fraction is within normal range. The Ejection Fracti on is 55-60%. There is normal LV segmental wall motion. Transmitral Doppler flow pattern is Grade I-a bnormal relaxation pattern. RIGHT VENTRICLE The right ventricle is normal size. The right ventricle is mildly hypertrophied. The right ventricula r systolic function is normal. ATRIA The left atrium size is normal. The right atrium size is normal. The interatrial septum is intact wit h no evidence for an atrial septal defect or patent foramen ovale as noted on 2-D or Doppler imaging. The ASD closure device is visualized in the interatrial septum. AORTIC VALVE The aortic valve is calcified but opens well. Doppler and Color Flow revealed no significant aortic r egurgitation. There is no significant aortic valvular stenosis. MITRAL VALVE The mitral valve is calcified but opens well. Mitral annular calcification is mild. There is no evide nce of mitral valve prolapse. There is no mitral valve stenosis. Doppler and Color Flow revealed no m itral valve regurgitation noted. TRICUSPID VALVE The tricuspid valve is normal in structure and function. Doppler and Color Flow revealed no tricuspid valve regurgitation noted. There is no tricuspid valve stenosis. PULMONIC VALVE The pulmonic valve is not well visualized. Doppler and Color Flow revealed no pulmonic valvular regur gitation. There is no pulmonic valvular stenosis. GREAT VESSELS The aortic root is normal in size. The ascending aorta is normal in size. The IVC is normal in size a nd collapses >50% with inspiration. PERICARDIAL EFFUSION There is no evidence of significant pericardial effusion. Critical Notification Critical Value: No <Conclusion> The left ventricular systolic function is normal and the ejection fraction is within normal range. Th e Ejection Fraction is 55-60%. There is normal LV segmental wall motion. Signed by : Jemima Zimmerman, Electronically Approved : 10/15/2020 16:41:21
== END ==
LOC: ECHO 12:36
PROVIDERS: ATTEND Internal Medicine Cardiovascular Disease
DX: I08.0 Rheumatic disorders of both mitral and aortic valves (principal); I63.9 Cerebral infarction, unspecified
CPT/HCPCS: 93306

== ENCOUNTER 2021-04-12 23:21 | Emergency (ER) | payer OTHER ==
[~2021-04-12] VITALS: Ht 170.2 cm; Wt 94.0 kg
--- NOTE | 2021-04-12 23:24 | PHYS DOC ---
Past History Past Medical History: Anxiety, Arthritis, Stroke Past Surgical History: Other Additional Past Surgical Histo: Craniotomy, PFO repair, Thrombectomy Smoking: Cigarettes Alcohol Use: Occasionally Drug Use: Amphetamine General Adult HPI: HPI: ".. I got a skin problem...".. I think.. maybe I got a spider bite.. my Lt ankle was itching... ".." I was told I need to cut out the spot...to tx a spider bite..." Patient is a 60 year old female who presents with above hx and complaints insect bite left ankle. Patient has a very minimal area of redness on left ankle. Alan montanez states area is itchy. Patient did not see the insect that bit her. Has been present for last couple days. Patient denies any recent travel. Patient denies any severe ill contacts. Patient does not remember her last tetanus shot. Patient follows with Gracie for care. Patient has past medical history of brain surgery, peripheral vascular disease, tobacco use, bronchitis, anxiety. Review of Systems: Review of Systems: Constitutional: Denies fever or chills Eyes: Denies change in visual acuity HENT: Denies nasal congestion or sore throat Respiratory: Denies cough or shortness of breath Cardiovascular: Denies chest pain or edema GI: Denies abdominal pain, nausea, vomiting, bloody stools or diarrhea : Denies dysuria Musculoskeletal: Denies back pain or joint pain Integument: Denies rash. Complains of insect bite left ankle Neurologic: Denies headache, focal weakness or sensory changes Endocrine: Denies polyuria or polydipsia Lymphatic: Denies swollen glands Psychiatric: Denies depression or anxiety Family History: Family History: Noncontributory Current Medications: Current Meds: See nursing for home meds Allergies: Allergies: Allergies Coded Allergies Type Severity Reaction Last Updated Verified No Known Drug Allergies 07/22/20 No Physical Exam: PE: Constitutional: , no acute distress, non-toxic appearance. [] HENT: Normocephalic, atraumatic, bilateral external ears normal, oropharynx moist, no oral exudates, nose normal. Scar posterior scalp Eyes: PERRLA, EOMI, conjunctiva normal, no discharge. [] Neck: Normal range of motion, no tenderness, supple, no stridor. [] Cardiovascular:Heart rate regular rhythm, no murmur [] Lungs & Thorax: Bilateral breath sounds equal apex auscultation [] Abdomen: Bowel sounds normal, soft, no tenderness, no masses, no pulsatile masses. [] Skin: Warm, dry, no erythema, no rash. Complains of of insect bite left ankle- very small area of erythema < 0, 2 cm. Back: No tenderness, no CVA tenderness. [] Extremities: No tenderness, no cyanosis, no clubbing, ROM intact, no edema. [] Neurologic: Alert and oriented X 3, normal motor function, normal sensory function, no focal deficits noted. [] Psychologic: Affect anxious, judgement normal, mood normal. [] EKG: EKG: [] Radiology/Procedures: Radiology/Procedures: [] Heart Score: C/O Chest Pain: N/A Risk Factors: Risk Factors: DM, Current or recent (<one month) smoker, HTN, HLP, family history of CAD, obesity. Risk Scores: Score 0 - 3: 2.5% MACE over next 6 weeks - Discharge Home Score 4 - 6: 20.3% MACE over next 6 weeks - Admit for Clinical Observation Score 7 - 10: 72.7% MACE over next 6 weeks - Early Invasive Strategies Course & Med Decision Making: Course & Med Decision Making Pertinent Labs and Imaging studies reviewed. (See chart for details) Use moist compresses of salt water and episome salt 4 x day to Lt. ankle. Then massage area with polysporin. Follow up with primary. . Stop smoking. Take meds as previously directed for your PVDz. Prior discharge pt. complaints of glass in Rt. foot. No obvious injury. X- ray ordered. Pt. refused x-ray and requested discharge. Impression: 1. Insect bite [] Dragon Disclaimer: Vijay Disclaimer: This electronic medical record was generated, in whole or in part, using a voice recognition dictation system. Departure Departure: Referrals: DAMASO BAER (PCP) Vijay Disclaimer This chart was dictated in whole or in part using Voice Recognition software in a busy, high-work load, and often noisy Emergency Department environment. It may contain unintended and wholly unrecognized errors or omissions. JORGE LUIS JUSTICE MD Apr 12, 2021 23:24
[2021-04-12 23:35] VITALS: BP 109/68
[2021-04-13] MEDS ORDERED: DIPH,PERTUSS(ACELL),TET VAC/PF 0.5 ML SYRINGE. VAX IM ONE (00:30)
== END 2021-04-13 00:36 | disposition home or self-care (01) ==
LOC: ER 23:21
DX: S90.562A Insect bite (nonvenomous), left ankle, initial encounter (principal); F41.9 Anxiety disorder, unspecified; M19.90 Unspecified osteoarthritis, unspecified site; F17.210 Nicotine dependence, cigarettes, uncomplicated; Z86.73 Personal history of transient ischemic attack (TIA), and cerebral infarction without residual deficits; W57.XXXA Bitten or stung by nonvenomous insect and other nonvenomous arthropods, initial encounter; Y93.89 Activity, other specified; Y92.89 Other specified places as the place of occurrence of the external cause; Y99.8 Other external cause status
CPT/HCPCS: 90471; 90715; 99283

== ENCOUNTER → 2021-09-05 | Outpatient (CLI) | payer OTHER ==
--- NOTE | 2021-09-05 12:46 | RAD ---
Bilateral digital screening mammogram: Reason for examination: Routine screening. Comparison: Mammogram from 06/14/2018. Interpretation was made with the benefit of CAD. FINDINGS: Breast density: Category A. Breast tissue is almost entirely fatty. No suspicious breast mass, malignant appearing calcifications, or architectural distortion is seen. IMPRESSION: No evidence of malignancy. Assessment: BI-RADS 1. Negative. Recommendation: Routine screening mammograms. The patient will receive a letter with the results in the mail. Patient information will be entered i nto the mammography reminder system with a target recall date for the next mammogram. A reminder aaron er will be generated. Electronically signed by: Karolyn Chu MD (09/05/2021 12:44 PM) [email or web address]
== END ==
LOC: MAMMO 11:04
PROVIDERS: ATTEND Physician Assistant Medical
DX: Z12.31 Encounter for screening mammogram for malignant neoplasm of breast (principal)
CPT/HCPCS: 77067

== ENCOUNTER → 2021-11-24 | Outpatient (CLI) | payer OTHER ==
--- NOTE | 2021-11-24 17:17 | RAD ---
MR#: [id number] Date of Study: 11/24/2021 Ordering Physician: JEMIMA ZIMMERMAN, Referring Physician: JEMIMA ZIMMERMAN, Tech: Sofi Lewis RVT, [facility] APPROVED REPORT Patient Location : OUT-PATIENT Indications localized swelling, mass/lump Critical Notification Critical Value: No <Conclusion> FINDINGS Grayscale images of superficial veins and saphenofemoral junctions both lower extremities were grossl y unremarkable without any evidence of thrombus. Spectral waveform and color duplex analysis did not show any significant venous reflux involving bilateral greater or lesser saphenous veins. CONCLUSIONS Lower extremity venous reflux study did not show any significant venous insufficiency involving bilat eral greater or lesser saphenous veins. Signed by : Slim Matthews, Electronically Approved : 11/24/2021 17:17:00
== END ==
LOC: US 13:03
PROVIDERS: ATTEND Internal Medicine Cardiovascular Disease
DX: R22.43 Localized swelling, mass and lump, lower limb, bilateral (principal)
CPT/HCPCS: 93970

== ENCOUNTER → 2021-11-25 | Outpatient (CLI) | payer OTHER ==
--- NOTE | 2021-11-25 17:54 | RAD ---
MR#: [id number] Date of Study: 11/25/2021 Ordering Physician: JEMIMA ZIMMERMAN, Referring Physician: JEMIMA ZIMMERMAN, Tech: Leena Mchugh RVT, [facility] APPROVED REPORT Patient Location: OUT-PATIENT Exam Type: Ankle to Brachial Index Indications PAD Risk Factors Smoking Pressures/Indices RightABI LeftABI Brachial 102mmHgBrachial 104mmHg Ankle(PT) 986ylRb4.2Ankle(PT) 114mmHg Ankle(DP) 122mmHgAnkle(DP) [id number] Critical Notification Critical Value: No <Conclusion> Bilateral lower extremity ankle-brachial indices were within normal limits at 1.2. No significant pe ripheral artery stenosis. Signed by : Slim Matthews, Electronically Approved : 11/25/2021 17:53:43
--- NOTE | 2021-11-25 17:56 | RAD ---
MR#: [id number] Date of Study: 11/25/2021 Ordering Physician: JEMIMA ZIMMERMAN, Referring Physician: JEMIMA ZIMMERMAN, Tech: Leena Mchugh RVT, [facility] APPROVED REPORT Patient Location: OUT-PATIENT Indications PAD Risk Factors Smoking VELOCITY AND DOPPLER WAVEFORM ANALYSIS RIGHT cm/secWaveformSeverity LEFT cm/secWaveform Severity pCFA 107.0TriphasicpCFA 89.7Triphasic Prof Fem Art. 69.0TriphasicProf Fem Art. 69.0Triphasic Fem Art Prox. 110.6TriphasicFem Art Prox. 106.3Triphasic Fem Art Mid. 109.2TriphasicFem Art Mid. 83.9Triphasic Fem Art Dist. 101.9TriphasicFem Art Dist. 68.7Triphasic Pop Art(Fossa) 50.9TriphasicPop Art(AK) 52.3Triphasic DISCHARGE RN Prox. 38.7TriphasicPTA Prox. 47.2Triphasic DISCHARGE RN Dist. 64.5TriphasicPTA Dist. 41.2Triphasic Per Art Prox. 32.9TriphasicPer Art Prox. 30.1Triphasic YAYA Prox. 56.2TriphasicATA Prox. 54.1Triphasic DPA 50TriphasicDPA 59Triphasic Critical Notification Critical Value: No <Conclusion> FINDINGS Grayscale images of peripheral arteries bilateral lower extremities showed mild diffuse atheroscleros is. Spectral waveform and color duplex analysis showed normal velocities in bilateral common femoral , deep femoral, superficial femoral, popliteal arteries. There is three-vessel runoff below the knee bilaterally with normal velocities. No significant peripheral artery stenosis was noted. CONCLUSIONS Bilateral lower extremity arterial duplex scan did not show any significant peripheral artery stenosi s. Signed by : Slim Matthews, Electronically Approved : 11/25/2021 17:55:16
== END ==
LOC: US 12:50
PROVIDERS: ATTEND Internal Medicine Cardiovascular Disease
DX: I73.9 Peripheral vascular disease, unspecified (principal)
CPT/HCPCS: 93923; 93925